=== PATIENT | female | born 1970 | race African-American/Black ===

== ENCOUNTER 2016-09-28 17:46 | Emergency (ER) | payer SELFPAY ==
[~2016-09-28] VITALS: Ht 175.3 cm; Wt 116.6 kg
[2016-09-28 17:55] VITALS: BP 167/95
[2016-09-28] MEDS ORDERED: NAPROXEN 500 MG TABLET PO STA (19:47)
[2016-09-28] MEDS ORDERED: HYDROCODONE/APAP 5/325MG TABLET. PO ONE (20:00)
[2016-09-28] MEDS ORDERED: HYDR-971 PO (20:13)
--- NOTE | 2016-09-28 20:13 | PHYS DOC ---
Past Medical History Past Medical History: Diabetes-Type II, Hypertension Additional Past Medical Histor: INSOMNIA Past Surgical History: Tonsillectomy Alcohol Use: Rarely Drug Use: None Adult General Chief Complaint Chief Complaint: KNEE INJURY HPI HPI Patient is a 46 year old female with history of hypertension and diabetes type 2 who presents today with left knee pain that began a couple minutes prior to coming to the ED after she fell on her left knee. Patient denies any loss of consciousness. Review of Systems Review of Systems Constitutional: Denies fever or chills [] Musculoskeletal: Left knee pain Integument: Denies rash or skin lesions [] Neurologic: Denies headache, focal weakness or sensory changes [] Endocrine: Denies polyuria or polydipsia [] Current Medications Current Medications Current Medications Medications (Trade) Dose Ordered Sig/Yumiko Start Time Stop Time Status Last Admin Dose Admin Acetaminophen/ Hydrocodone Bitart (Lortab 5/325) 1 tab 1X ONCE 09/28/16 20:00 09/28/16 20:01 DC 09/28/16 19:56 1 TAB Naproxen (Naprosyn) 500 mg 1X STAT 09/28/16 19:47 09/28/16 19:51 DC 09/28/16 19:56 500 MG Allergies Allergies Allergies Coded Allergies Type Severity Reaction Last Updated Verified ofloxacin Allergy Intermediate 09/28/16 No Physical Exam Physical Exam Constitutional: Well developed, well nourished, no acute distress, non-toxic appearance. [] Skin: Warm, dry, no erythema, no rash. [] Back: No tenderness, no CVA tenderness. [] Extremities: No obvious deformity to the left knee. Left knee appears swollen, no bruising or ecchymosis, tenderness on palpation of left anterior knee. Patient unable to flex the left knee. Patient unable to take the left knee through any range of motion due to pain. +2 left pedal pulse. Cap refill less than 2 seconds the left lower extremity. Sensation intact to the left lower extremity. Neurologic: Alert and oriented X 3, normal motor function, normal sensory function, no focal deficits noted. [] Psychologic: Affect normal, judgement normal, mood normal. [] Current Patient Data Vital Signs Vital Signs Date Time Temp Pulse Resp B/P Pulse Ox O2 Delivery O2 Flow Rate FiO2 09/28/16 19:56 Room Air 09/28/16 17:55 98.1 96 18 97 98.1 EKG EKG [] Radiology/Procedures Radiology/Procedures [] Course & Med Decision Making Course & Med Decision Making Pertinent Labs and Imaging studies reviewed. (See chart for details) Patient is in the ED with left knee pain after falling on it. Left knee x-rays interpreted by Dr. Olivares were noted for an acute fracture of the patella. Patient is unable to flex the left knee. 19:[address] Mohamud. He requested we put patient in a knee immobilizer give her crutches and she can follow-up on Saturday. Patient was placed in a knee immobilizer by the library technology instructor. She was provided crutches. Neurovascular exam done by me is normal, cap refill less than 2 seconds. Follow-up with Ortho on Saturday. Dragon Disclaimer Dragon Disclaimer This electronic medical record was generated, in whole or in part, using a voice recognition dictation system. Departure Departure Impression: Primary Impression: Fall from standing Additional Impression: Left patella fracture Disposition: HOME, SELF-CARE Condition: STABLE Referrals: UNKNOWN PCP NAME (PCP) BRENDAN MOHAMUD MD Follow-up on Saturday Patient Instructions: Patellar Fracture, Adult Additional Instructions: You were seen for patellar fracture of the left knee. Please follow-up with the provided orthopedic doctor on Saturday morning. Keep the extremity iced and elevated. Do not put any weight on it. Scripts Hydrocodone/Apap 5-325 ([place] 5-325 Tablet)1 Each Tablet1-2 Tab PO Q4-6HRS #26 TAB Prov:PATRICIO VASQUEZ APRN 09/28/16 Problem Qualifiers Primary Impression: Fall from standing Encounter type: initial encounter Qualified Code: W19.XXXA - Unspecified fall, initial encounter Additional Impression: Left patella fracture Encounter type: initial encounter Fracture type: closed Fracture morphology : longitudinal Fracture alignment: nondisplaced Qualified Code: S82.025A - Nondisplaced longitudinal fracture of left patella, initial encounter for closed fracture PATRICIO VASQUEZ APRN Sep 28, 2016 20:13
--- NOTE | 2016-09-29 08:33 | RAD ---
Indication fall. Pain. AP lateral oblique and sunrise view of the left knee were obtained. There is soft tissue swelling. There is a joint effusion. There is a vertical essentially nondisplaced traumatic fracture involving the patella. IMPRESSION: Fractured patella
== END 2016-09-28 20:21 | disposition home or self-care (01) ==
LOC: ER 17:46
DX: S82.002A Unspecified fracture of left patella, initial encounter for closed fracture (principal); E11.9 Type 2 diabetes mellitus without complications; I10 Essential (primary) hypertension; G47.00 Insomnia, unspecified; Z88.8 Allergy status to other drugs, medicaments and biological substances; W18.39XA Other fall on same level, initial encounter; Y93.89 Activity, other specified; Y92.89 Other specified places as the place of occurrence of the external cause; Y99.8 Other external cause status
CPT/HCPCS: 29505; 73564; 99284-25

== ENCOUNTER 2018-12-15 19:04 | Emergency (ER) | payer SELFPAY ==
[~2018-12-15] VITALS: Ht 170.2 cm; Wt 133.4 kg
[~2018-12-15 19:04] MED LIST: ALBU2.5V8 IH; AMIT10TA PO; AMLO10TA8 PO; AMOX1TAB61 PO; ASPI-630 PO; CITA10TA4 PO; CITA20TA6 PO; FLUC200T4 PO; HYDR-3164 PO; IBUP1TAB12 PO; INSU100C4 SQ; INSU100I13 SQ; LOSA100T14 PO; METF10007 PO; METO100T7 PO; METO50TA6 PO; MULT-299 PO; TIZA4TAB PO
[2018-12-15 19:08] VITALS: BP 167/94
[2018-12-15] MEDS ORDERED: CETIRIZINE HCL 10 MG TABLET. PO STA (19:36)
[2018-12-15] MEDS ORDERED: HYDR25TA PO (19:44)
[2018-12-15] MEDS ORDERED: FAMO20TA5 PO (19:44)
[2018-12-15] MEDS ORDERED: TRIA15OI TP (19:44)
[2018-12-15] MEDS ORDERED: PRED50TA PO (19:44)
--- NOTE | 2018-12-15 19:44 | PHYS DOC ---
Past Medical History Past Medical History: Diabetes-Type II, Hypertension, Sciatica Additional Past Medical Histor: INSOMNIA Past Surgical History: Tonsillectomy Alcohol Use: None Drug Use: None Adult General Chief Complaint Chief Complaint: INSECT BITE HPI HPI Patient is a 48 year old female who presents to the ED today complaining of insect bites that occurred yesterday. Patient states she was bit on the right ankle then this morning she has noted more bites on the body including right upper arm, right side of the abdomen. Patient denies any fever. Denies any changes in laundry detergent, bathing soap, or any contact with anything new that could've caused this rash. She states she's had similar bites before. She states she doesn't remember exactly what bit her. We spent an intensive amount of time discussing insect bites. Informed patient it is very hard to know exactly what each insect bites could be but we can help her with the symptoms she has which included itching. She states she would like to be given the exact insect that bit her. I spent even more time explaining to patient and sone this is not an ideal situation we cannot know exactly what bit her because of many reasons but we i am more than glad to help her with the symptoms including itching and reduce the severity of the rash. I then asked her what she is taking for the itching, she states she's been taking Benadryl, she removed some cream from her left breast informing me her friend gave her this cream and she's been using it today with no relief. The cream was used desonide 0.05 %, informed that there is actually a good topical cream she can keep using it. She continues to complain it's not helping. Informed her i can give her a different prescription try like triamcinolone. She states she doesn't think it will help. Informed her we can try hydroxyzine for itching, she's states she doesn't think is going to help her, we spent an incredible amount of time going through medications she can try including a steroid injection in the ED, some prednisone for home use. She continues to complain, she stated we need to give her the exact insect that bit her, she states what if it's something contagious. Informed patient it is unrealistic to expect us to know exactly what bit her, even if it is contagious like bedbugs we recommended to go home and clean everything up, hygiene is the [place] on bed bugs. Informed her management of most of this rashes from insect bite is the same, as long as they do not appear infected, outpatient management is the way to go. She continues stating we need to tell her what is biting her. Her son is in the room also chipping stating we need to know what's biting her. Informed patient I do not 100% answer of what's biting her but we can manage the symptoms she has. Informed her even this type of lesions she has could be from other sources including contact dermatitis that can cause similar rashes but treatment is the same. Now the son chips in stating patient is in the emergency room to be told what's biting her and we are not giving her that information. I had talked to them about the multiple possible insects that could cause the bites including mosquitoes, bedbugs, ticks, or mites, bees, wasp etc, went through so many insects, informed them by elimination i doubt its anything venous like bees or wasp even better she has no anaphylactic type of reaction and this started yesterday. The son chips in and states one of the family member breeds bees. Informed patient the pattern of bites she has are not consistent with the bee stings. They continue to states they need to be told what's biting her. Patient states the son is opening a new restaurant and she does not want to go to the restaurant with this bites just in case they contagious the customers will have it informed she can stay at home but there is no admission criteria for the bites she has. Informed her we actually don't contain/admit people for simple insect bites even if they're bedbugs unless they have other issues with it, we usually make them go home and encouraged them to clean their house I even talked to her about cleaning, she replied stating her houses is as clean as mine. Informed her if her house is clean then it is less likely bed bugs. Patient continues to complain. She stating she is now feeling rushed. Informed patient we cannot continue spending more time in the room discussing about insect bites. She needs to be given the care related to the symptoms she has and she can follow-up with her own PCP. She states we are treating her the same when she gets treated at the clinic ([facility]) because she has no medical insurance. Reminded patient we have no look at peoples insurance, when we got to the room the standard of care she receives is the same. She states this is the kind of treatment she gets whenever she goes to her local clinic to be seen, they treat her like she has no insurance she states she feels she is being treated like a second class citizend. Informed patient and again we do not look at patient's insurance information before going to the room. She is being treated like anyone else with an insect bite, would typically be treated. She continues complaining stating she doesn't feel she is getting the attention she needs. At this point informed patient I would like her to decide if she would like steroid injections or pills and hydroxyzine as a shot or pills. She decided shots. I even offered her triamcinolone cream, prednisone short course, famotidine and hydroxyzine. Patient states she is still feeling rushed. Informed her we need to make a decision about the treatment plan and she can follow-up with her own d octor. She states this is the kind of treatment she received at the clinic where she feels people with no insurance at treated different. Patient continues to complain, and complain, she goes further to state they i should touched her rashes. Informed patient her rashes look simple insect bites, they don't need to be individually touched. Informed there is also risk involvement in touching patient with insect bites including incase they are bed bugs i am not dressed appropriately to be touching bed bugs hence for simple non infected rashes they do not need to be individually touched. Informed outpatient to consider treatment and she can go home and f/u with her doctor. Informed her even if they're bedbugs they will be no extra benefits of touching them other than getting myself exposed and other patients. She continued to insist that they i should touch her individual bites. Informed at this point i feeling uncomfortable because not people with insect bites that are not infected to not demand to be touched. Informed we typically don't go touching each and every bite on the skin. Informed her this kind of exams for insect bites do not require extensive physical exams including touching each and every bite because we put ourselves at risk of getting some of them on us especially if they are like bedbugs. Informed patient we are not required to touch insect bites, in fact we exercise cautions incase they are contagious. Informed her we will bring her the medicines she needs and she can go home. I came back to the desk and started dictating on other patients. Colleen RN goes to the room to give her medicines. She starts complaining to Colleen again stating she was not informed by the doctor what insect bite her. She stases she feels we are treating her differently because she has no insurance. Colleen tried talk to them. 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 Patient consumed another long time with the patient. The son even gives any example of how they brought someone else to be seen and when they were asked questions by the IC nurse the patient apparently jumped into the conversation demanding the person to moved to the room right hadley y. Off note the son states that bill was paid not by them. RN continued to reassure them while giving her hydroxyzine, and Decadron IM. Patient and son states they know a nurse who know Camryn. The continue to complain and complain. D/c to home. Review of Systems Review of Systems Constitutional: Denies fever or chills [] Musculoskeletal: Denies back pain or joint pain [] Integument: insect bite Neurologic: Denies headache, focal weakness or sensory changes [] All other systems were reviewed and found to be within normal limits, except as documented in this note. Current Medications Current Medications Current Medications Medications (Trade) Dose Ordered Sig/Yumiko Start Time Stop Time Status Last Admin Dose Admin Cetirizine HCl (ZyrTEC) 10 mg 1X STAT 12/15/18 19:36 12/15/18 19:45 DC 12/15/18 20:04 10 MG Dexamethasone Sodium Phosphate (Decadron) 10 mg 1X ONCE 12/15/18 20:15 12/15/18 20:16 DC 12/15/18 20:09 10 MG Famotidine (Pepcid) 20 mg 1X ONCE 12/15/18 20:15 12/15/18 20:16 DC 12/15/18 20:03 20 MG Hydroxyzine HCl (Vistaril Im) 25 mg 1X ONCE 12/15/18 20:15 12/15/18 20:16 DC 12/15/18 20:05 25 MG Allergies Allergies Allergies Coded Allergies Type Severity Reaction Last Updated Verified ofloxacin Allergy Intermediate 09/28/16 No Physical Exam Physical Exam Constitutional: Well developed, well nourished, no acute distress, non-toxic appearance. [] Skin: Warm, dry, 1 mild size erythematous rash noted on the right triceps with no bulls eye, two small erythematous rashes noted on the right lower abdomen, and another noted on the right ankle/foot Back: No tenderness, no CVA tenderness. [] Extremities: No tenderness, no cyanosis, no clubbing, ROM intact, no edema. [] Neurologic: Alert and oriented X 3, normal motor function, normal sensory function, no focal deficits noted. [] Psychologic: Affect normal, judgement normal, mood normal. [] Current Patient Data Vital Signs Vital Signs Date Time Temp Pulse Resp B/P (MAP) Pulse Ox O2 Delivery O2 Flow Rate FiO2 12/15/18 19:08 98.5 84 18 167/94 (118) 98 Room Air 98.5 EKG EKG [] Radiology/Procedures Radiology/Procedures [] Course & Med Decision Making Course & Med Decision Making Pertinent Labs and Imaging studies reviewed. (See chart for details) See history of present illness. This was an extensive visit with the patient complaining the entire time stating we treating her like a second class citizen because she has no insurance. Both the RN and I spend incredible amount of time on this patient and the son who continued to complain. She was finally discharged to home and verbally instructed to follow-up with her own doctor /[facility]. Given prescriptions for prednisone, hydroxyzine, triamcinolone cream and Pepcid. Dragon Disclaimer Dragon Disclaimer This electronic medical record was generated, in whole or in part, using a voice recognition dictation system. Departure Departure Impression: Primary Impression: Insect bite Disposition: HOME, SELF-CARE Condition: STABLE Referrals: UNKNOWN PCP NAME (PCP) Patient Instructions: Insect Bite, [id number] Additional Instructions: You were evaluated in the emergency room for insect bites. We put to medications use them as prescribed. Please follow-up with the provided battery tester field in 2-4 weeks if symptoms persist. Scripts Triamcinolone Acetonide (TRIAMCINOLONE ACETONIDE 0.1% OINT) 15 Gm Oint...g. 1 [place] TP TID for WOUND CARE, #1 TUBE Prov: PATRICIO VASQUEZ APRN 12/15/18 Famotidine (FAMOTIDINE) 20 Mg Tablet 20 MG PO DAILY, #7 TAB Prov: PATRICIO VASQUEZ APRN 12/15/18 Prednisone (PREDNISONE) 50 Mg Tablet 1 TAB PO DAILY, #5 TAB Prov: PATRICIO VASQUEZ APRN 12/15/18 Hydroxyzine Hcl (HYDROXYZINE HCL) 25 Mg Tablet 1 TAB PO TID, #30 TAB Prov: PATRICIO VASQUEZ APRN 12/15/18 Problem Qualifiers Primary Impression: Insect bite Encounter type: initial encounter Site of insect bite: upper arm Laterality: right Qualified Codes: S40.861A - Insect bite (nonvenomous) of right upper arm, initial encounter; W57.XXXA - Bitten or stung by nonvenomous insect and other nonvenomous arthropods, initial encounter PATRICIO VASQUEZ APRN Dec 15, 2018 19:44
[2018-12-15] MEDS ORDERED: hydrOXYzine IM 50 MG/ML VIAL IM ONE (20:15)
[2018-12-15] MEDS ORDERED: DEXAMETHASONE SOD PHOS 20 MG/5 ML VIAL. IM ONE (20:15)
[2018-12-15] MEDS ORDERED: FAMOTIDINE 20 MG TABLET. PO ONE (20:15)
== END 2018-12-15 20:13 | disposition home or self-care (01) ==
LOC: ER 19:04
DX: S40.861A Insect bite (nonvenomous) of right upper arm, initial encounter (principal); E11.9 Type 2 diabetes mellitus without complications; I10 Essential (primary) hypertension; Z88.1 Allergy status to other antibiotic agents; Z90.89 Acquired absence of other organs; W57.XXXA Bitten or stung by nonvenomous insect and other nonvenomous arthropods, initial encounter; Y93.89 Activity, other specified; Y92.89 Other specified places as the place of occurrence of the external cause; Y99.8 Other external cause status
CPT/HCPCS: 96372; 99284; J1100; J3410

== ENCOUNTER 2019-05-17 06:49 | Emergency (ER) | payer SELFPAY ==
[~2019-05-17] VITALS: Ht 170.2 cm; Wt 132.9 kg
[2019-05-17 06:49] VITALS: BP 168/71
[~2019-05-17 06:49] MED LIST changes: -ALBU2.5V8 IH; +FAMO20TA5 PO; +HYDR25TA PO; +PRED50TA PO; +PROVENTIL HFA6.7 GM IH; -TIZA4TAB PO; +TIZA4TAB2 PO; +TRIA15OI TP
[2019-05-17] MEDS ORDERED: GABA-585 PO (07:09)
--- NOTE | 2019-05-17 07:09 | PHYS DOC ---
Past Medical History Past Medical History: Depression, Diabetes-Type II, Hypertension, Sciatica, Other Additional Past Medical Histor: INSOMNIA, PULMONARY HTN Past Surgical History: Tonsillectomy, Other Additional Past Surgical Histo: RIGHT BREAST CYST REMOVAL Alcohol Use: Occasionally Drug Use: None Adult General Chief Complaint Chief Complaint: LOWER EXT PAIN HPI HPI Patient is a 48-year-old female, who presents to the emergency department for evaluation of bilateral lower leg pain. She has a history of diabetic neuropathy, and states she is having pins and needles and crampy-type pain in her legs bilaterally, somewhat worse on the right. This has been developing over the past 2 days. Massaging her legs does help improve the pain slightly. She denies any increasing leg edema, incontinence, new numbness, or weakness . She denies any injuries. While she does have a history of sciatica, she denies any lower back pain at this time. There are no alleviating or exacerbating factors to her symptoms. She arrives via EMS, and her blood sugar was reported to be in the low 200s, which the patient states is lower than it normally runs. She has recently completed a course of prednisone for a upper respiratory syndrome that has been protracted over the past several weeks, and is feeling better from this standpoint and has no respiratory complaints. Review of Systems Review of Systems Constitutional: Denies fever or chills [] Eyes: Denies change in visual acuity, redness, or eye pain [] HENT: Denies nasal congestion or sore throat [] Respiratory: Denies cough or shortness of breath [] Cardiovascular: The patient denies any shortness of breath, chest pain, palpitations, or orthopnea [] GI: Denies abdominal pain, nausea, vomiting, bloody stools or diarrhea [] : Denies dysuria or hematuria [] Musculoskeletal: Denies back pain or joint pain [] Integument: Denies rash or skin lesions [] Neurologic: Denies headache, focal weakness or new sensory changes [] Endocrine: Denies polyuria or polydipsia [] All other systems were reviewed and found to be within normal limits, except as documented in this note. Current Medications Current Medications Current Medications Medications (Trade) Dose Ordered Sig/Yumiko Start Time Stop Time Status Last Admin Dose Admin Ketorolac Tromethamine (Toradol Im) 60 mg 1X ONCE 05/17/19 07:15 05/17/19 07:16 DC 05/17/19 07:15 60 MG Allergies Allergies Allergies Coded Allergies Type Severity Reaction Last Updated Verified ofloxacin Allergy Intermediate 09/28/16 No Physical Exam Physical Exam PHYSICAL EXAM: CONSTITUTIONAL: Well developed, well nourished HEAD: normocephalic, atraumatic EENT: PERRL, EOMI. Conjunctivae normal color, sclerae non-icteric; moist mucous membranes. NECK: Supple, non-tender; no meningismus. LUNGS: Lungs CTA, breathing even and unlabored. Normal air movement. HEART: Regular rate and rhythm, no murmur CHEST: No deformity; non-tender ABDOMEN: The abdomen is soft, and non-tender, no masses or bruits. EXTREM: Normal ROM; no deformity, no calf tenderness. Normal pulses palpable in all extremities. There is no pedal edema. Dorsalis pedis pulses are strong bilaterally. SKIN: No rash; no diaphoresis NEURO: Alert; normal speech and cognition; CN's grossly intact; strength grossly intact without focal deficit. There is no foot drop. There is no perineal anesthesia. Patellar reflexes are 1+ bilaterally. Skin of the lower extremities is normal. BACK: No CVA TTP. Current Patient Data Vital Signs Vital Signs Date Time Temp Pulse Resp B/P (MAP) Pulse Ox O2 Delivery O2 Flow Rate FiO2 05/17/19 06:49 98.1 108 16 168/71 (103) 99 Room Air 98.1 EKG EKG [] Radiology/Procedures Radiology/Procedures [] Course & Med Decision Making Course & Med Decision Making Patient's symptoms are consistent with diabetic neuropathy, something she has had in the past, especially given the recurrent nature of her symptoms. I will give her an injection of Toradol in the emergency department for acute pain control, and a prescription for gabapentin as a therapeutic trial, is certainly appropriate given her diabetic neuropathy. I stressed importance of close follow-up and return precautions in detail. 7:35 AM: Patient underwent a medical screening exam, per facility policy, including having her acute pain stabilized. However, per private policy the patient declined to continue her visit, and then eloped from the emergency department before further care final prescription or instructions could be administered. Dragon Disclaimer Dragon Disclaimer This electronic medical record was generated, in whole or in part, using a voice recognition dictation system. Departure Departure Impression: Primary Impression: Diabetic neuropathy Disposition: 07 AGAINST MEDICAL ADVICE Condition: STABLE Referrals: UNKNOWN PCP NAME (PCP) Patient Instructions: Diabetes Meal Planning Guide, Diabetic Nephropathy Scripts Gabapentin (NEURONTIN ) 100 Mg Capsule 1 CAP PO TID for 30 Days, #90 CAP 0 Refills Prov: JEFFRY MALDONADO MD 05/17/19 JEFFRY MALDONADO MD May 17, 2019 07:09
[2019-05-17] MEDS ORDERED: KETOROLAC 60 MG/2 ML VIAL. IM ONE (07:15)
== END 2019-05-17 07:48 | disposition left against medical advice (07) ==
LOC: ER 06:49
DX: E11.40 Type 2 diabetes mellitus with diabetic neuropathy, unspecified (principal); F32.9 Major depressive disorder, single episode, unspecified; M79.605 Pain in left leg; M79.604 Pain in right leg; G47.00 Insomnia, unspecified; I10 Essential (primary) hypertension; Z90.89 Acquired absence of other organs; Z72.89 Other problems related to lifestyle; Z88.1 Allergy status to other antibiotic agents
CPT/HCPCS: 96372; 99283; J1885